=== PATIENT | male | born 1985 | race African-American/Black ===

== ENCOUNTER 2021-02-14 19:31 | Emergency (ER) | payer OTHER ==
[~2021-02-14] VITALS: Ht 167.6 cm; Wt 78.9 kg
[2021-02-14 19:33] VITALS: BP 140/87
== END 2021-02-14 20:46 | disposition home or self-care (01) ==
LOC: M ED 19:31
DX: T21.22XA Burn of second degree of abdominal wall, initial encounter (principal); T31.0 Burns involving less than 10% of body surface; X12.XXXA Contact with other hot fluids, initial encounter; Y92.018 Other place in single-family (private) house as the place of occurrence of the external cause